=== PATIENT | female | born 1960 | race Caucasian/White ===

== ENCOUNTER → 2022-07-08 | Outpatient (REF) | payer BC ==
[~2022-07-08] MED LIST: AMLO1TAB24 PO; CIPR-249 PO; DULO1CAP6; MIRA3350 PO; OXYB10TA23 PO; TRAZ-189 PO
[2022-07-08 13:06] LABS: BASO % 0.3 % (0.0-1.0); EOS # 0.2 10^3/uL (0.0-0.5); EOS % 3.4 % (0.0-3.0); HEMATOCRIT 37.6 % (36.0-47.0); HEMOGLOBIN 12.3 g/dl (12.0-15.5); LYMPH # 1.4 10^3/uL (1.5-5.0); LYMPH % 20.1 % (24.0-44.0); MEAN CORPUSCULAR HEMOGLOBIN 32.7 pg (27.0-33.0); MEAN CORPUSCULAR HGB CONC 32.7 g/dl (32.0-36.5); MONO # 0.4 10^3/uL (0.0-0.8); MONO % 6.3 % (2.0-8.0); NEUTROPHILS # 4.9 10^3/uL (1.5-8.5); NEUTROPHILS % 69.5 % (36.0-66.0); PLATELET COUNT, AUTOMATED 297 10^3/uL (150-450); RED BLOOD COUNT 3.76 10^6/uL (4.00-5.40)
[2022-07-08 13:36] LABS: TOTAL IRON BINDING CAPACITY 282 UG/DL (250-425)
[2022-07-08 13:37] LABS: FOLATE 12.9 NG/ML (>5.4)
[2022-07-08 13:38] LABS: ALBUMIN 3.8 G/DL (3.2-5.2); ALKALINE PHOSPHATASE 119 U/L (46-116); ALT/SGPT 15 U/L (7.0-40); AST/SGOT 11 U/L (<34); BILIRUBIN,TOTAL 0.3 MG/DL (0.3-1.2); BLOOD UREA NITROGEN 11 MG/DL (9-23); CALCIUM LEVEL 8.9 MG/DL (8.3-10.6); CARBON DIOXIDE LEVEL 30 MMOL/L (20-31); CHLORIDE LEVEL 105 MMOL/L (98-107); CREATININE FOR GFR 0.71 MG/DL (0.55-1.30); GLOMERULAR FILTRATION RATE > 60.0 (>45); GLUCOSE, FASTING 95 MG/DL (74-106); IRON (FE) 47 UG/DL (50-170); PERCENT SATURATION 16.7 % (13.2-45.0); POTASSIUM SERUM 4.3 MMOL/L (3.5-5.1); SODIUM LEVEL 141 MMOL/L (136-145); TOTAL PROTEIN 6.2 G/DL (5.7-8.2); VITAMIN B12 LEVEL 136 PG/ML (211-911)
== END ==
LOC: M LABWUC 12:24
PROVIDERS: ATTEND Student in an Organized Health Care Education/Training Program
DX: R53.83 Other fatigue (principal)

== ENCOUNTER 2022-07-09 15:27 | Emergency (ER) | payer BC ==
[~2022-07-09] VITALS: Ht 162.6 cm; Wt 72.2 kg
[2022-07-09] MEDS ORDERED: DULO1CAP6 (16:02)
[2022-07-09] MEDS ORDERED: AMLO1TAB24 PO (16:02)
[2022-07-09] MEDS ORDERED: OXYB10TA23 PO (16:02)
[2022-07-09] MEDS ORDERED: TRAZ-189 PO (16:02)
[2022-07-09] MEDS ORDERED: CYANOCOBALAMIN 1,000MCG/ML 1ML VIAL IM ONE (16:45)
[2022-07-09 17:12] LABS: BASO % 0.3 % (0.0-1.0); EOS # 0.2 10^3/uL (0.0-0.5); EOS % 2.6 % (0.0-3.0); HEMATOCRIT 37.1 % (36.0-47.0); HEMOGLOBIN 12.3 g/dl (12.0-15.5); LYMPH % 22.1 % (24.0-44.0); MEAN CORPUSCULAR HEMOGLOBIN 32.5 pg (27.0-33.0); MEAN CORPUSCULAR HGB CONC 33.2 g/dl (32.0-36.5); MEAN CORPUSCULAR VOLUME 98.1 fl (80.0-96.0); MONO # 0.6 10^3/uL (0.0-0.8); MONO % 6.2 % (2.0-8.0); NEUTROPHILS # 6.1 10^3/uL (1.5-8.5); NEUTROPHILS % 68.6 % (36.0-66.0); PLATELET COUNT, AUTOMATED 278 10^3/uL (150-450); RED BLOOD COUNT 3.78 10^6/uL (4.00-5.40); WHITE BLOOD COUNT 8.8 10^3/uL (4.0-10.0)
[2022-07-09 17:26] LABS: INR 0.91; PROTHROMBIN TIME 12.4 SECONDS (12.5-14.5)
[2022-07-09 17:27] LABS: PARTIAL THROMBOPLASTIN TIME 27.6 SECONDS (24.8-34.2)
[2022-07-09 17:36] LABS: LIPASE 33 U/L (12-53)
[2022-07-09 17:38] LABS: ALBUMIN 3.8 G/DL (3.2-5.2); ALKALINE PHOSPHATASE 117 U/L (46-116); ALT/SGPT 13 U/L (7.0-40); AST/SGOT 10 U/L (<34); BILIRUBIN,DIRECT < 0.1 MG/DL (<0.4); BILIRUBIN,TOTAL 0.3 MG/DL (0.3-1.2); TOTAL PROTEIN 6.3 G/DL (5.7-8.2)
[2022-07-09] MEDS ORDERED: ISOVUE-370 76% 100ML VIAL As Ordered ONE (17:45)
[2022-07-09] MEDS ORDERED: MIRA3350 PO (19:37)
[2022-07-09] MEDS ORDERED: CIPR-249 PO (19:37)
[2022-07-09 19:49] VITALS: BP 159/92
[2022-07-09] MEDS ORDERED: CIPROFLOXACIN 500MG TABLET PO ONE (21:00)
[2022-07-10] MEDS ORDERED: CIPR-249 PO (12:26)
[2022-07-10] MEDS ORDERED: MIRA3350 PO (12:26)
== END 2022-07-09 20:39 | disposition home or self-care (01) ==
LOC: M ED 15:27
DX: K59.00 Constipation, unspecified (principal); N39.0 Urinary tract infection, site not specified; D51.9 Vitamin B12 deficiency anemia, unspecified; E66.9 Obesity, unspecified; I10 Essential (primary) hypertension; K57.30 Diverticulosis of large intestine without perforation or abscess without bleeding
CPT/HCPCS: 36415; 74177; 80047; 80076; 81001; 83690; 85025; 85610; 85730; 87088; 87186; 96374; 99284; J3420; Q9967